=== PATIENT | male | born 1975 | race Caucasian/White ===

== ENCOUNTER 2017-07-25 09:38 | Outpatient (CLI) | payer BC ==
--- NOTE | 2017-07-25 13:27 | EKG ---
Test Reason : OUTPT Blood Pressure : / mmHG Vent. Rate : 070 BPM Atrial Rate : 070 BPM P-R Int : 144 ms QRS Dur : 106 ms QT Int : 416 ms P-R-T Axes : 034 030 046 degrees QTc Int : 449 ms Normal sinus rhythm Normal ECG No previous ECGs available Confirmed by DR. Araseli FELIZ ([id number]) on 07/25/2017 1:26:40 PM Referred By: Nikolay HEAD Confirmed By:DR. Araseli FELIZ
== END 2017-07-25 09:39 | disposition home or self-care (01) ==
LOC: EKG 09:38
PROVIDERS: ATTEND Family Medicine
DX: R07.9 Chest pain, unspecified (principal)
CPT/HCPCS: 93005; 93010

== ENCOUNTER 2017-07-26 13:14 | Outpatient (CLI) | payer BC | END 2017-07-26 13:15 | disposition home or self-care (01) | PROVIDERS: ATTEND Family Medicine | DX: R07.9 Chest pain, unspecified (principal) | CPT/HCPCS: 93017 ==